=== PATIENT | female | born 1955 | race Caucasian/White ===

== ENCOUNTER → 2018-02-19 | Day surgery (SDC) | payer OTHER ==
[~2018-02-19] MED LIST: ASPIR 8181 MG PO; BUPIVACAINE 0.5%/EPI 30 ML SDV INJ ONE; CALCIUM ACETAT667 MG PO; CLINDAMYCIN 600MG / 50ML 50 ML IV ONE; FENTANYL CITRATE/PF 100MCG/2 ML INJ ONE; LIDOCAINE 2%/ EPINEPHRINE 20ML MDV ONE; LIDOCAINE HCL 2% LOCAL INJ 5 ML SDV VIAL INJ ONE; MIDAZOLAM HCL 2 MG/2 ML VIAL ONE; MULTI-VITAMIN1 EACH PO; MYRBETRIQ50 MG PO; NITROFURANTOIN100 MG PO; PIPER-TAZ 3.375 GM 50 ML ONE; PROPOFOL IV EMULSION 10 MG/ML 20 ML VIAL ONE; ROCURONIUM BROMIDE 10 MG/ML 5ML VIAL ONE; SEVOFLURANE INHAL SOLN 250 ML PEN BTL ONE; SINGULAIR10 MG PO; SODIUM CHLORIDE 0.9% 50ML 50 ML ONE; SUCCINYLCHOLINE 200 MG/10 ML SYR ONE
--- OUTSIDE RECORDS SUMMARY | 2018-02-19 09:00 | XMS REPORT | Clinical Summary ---
Author Author SHAKILA [facility]St[facility] Address Unknown Phone Unavailable Care Team Providers Care Packaging Associate Name Role Phone Pako Koo MD PCP Allergies Comments Active Allergy Reactions Severity Noted Date Patient states it makes her "spaced out" Phenylephrine-Guaifenesin 09/16/2013 Medications End Date Status Medication Sig Dispensed Refills Start Date Active raloxifene (EVISTA) 60 mg Take 60 mg by 0 tablet mouth daily. Active buPROPion (WELLBUTRIN XL) Take 150 mg 0 150 MG 24 hr tablet by mouth daily. Active mirabegron (MYRBETRIQ) 50 Take 50 mg by 0 mg Tb24 mouth daily. Active esomeprazole (NEXIUM) 40 Take 40 mg by 0 MG capsule mouth daily. Active calcium carbonate-vitamin Take 1 tablet 0 D2 500 mg(1,250mg) -200 by mouth 2 unit tablet (two) times daily. Active lactobacillus Take 1 packet 0 acidoph-L.bulgar by mouth 2 (LACTINEX,FLORANEX) 100 (two) times million cell oral daily. granules Active multivitamin capsule Take 1 0 capsule by mouth daily. 01/04/2018 azithromycin (ZITHROMAX Take 1 tablet 6 tablet 0 Z-PANCHITO) 250 MG tablet (250 mg 8 total) by mouth daily for 5 days Take two on first day.. 01/06/2018 benzonatate (TESSALON) Take 1 21 capsule 0 100 MG capsule capsule (100 8 mg total) by mouth every 8 (eight) hours for 7 days. Active Problems Problem Noted Date Appendicitis, unspecified appendicitis type 03/24/2015 Urge incontinence 09/16/2013 Overview: Refractory urge incontinence. Failed multiple meds. Urge incontinence almost completely controlled with Interstim percutaneous test. Right was better than left. 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 Encounters Care Team Description Date Type Specialty Arik Reza MD Productive cough (Primary Dx); Acute bronchitis, unspecified organism 12/30/2017 Emergency Emergency Medicine after 02/18/2017 Family History Medical History Relation Name Comments Cancer Father Cancer Mother Stroke Mother Relation Name Status Comments Father Mother Social History Date Tobacco Use Types Packs/Day Years Used Never Smoker Smokeless Tobacco: Never Used Alcohol Use Drinks/Week oz/Week Comments Yes 1 Cans of 0.6 Occassionally beer Sex Assigned at Date Recorded Not on file Industry Job Start Date Occupation Not on file Not on file Not on file Travel End Travel History Travel Start No recent travel history available. Last Filed Vital Signs Time Taken Vital Sign Reading 12/30/2017 11:50 AM CDT Blood Pressure 144/68 12/30/2017 11:50 AM CDT Pulse 80 12/30/2017 11:50 AM CDT Temperature 36.3 C (97.4 F) 12/30/2017 11:50 AM CDT Respiratory Rate 16 12/30/2017 11:50 AM CDT Oxygen Saturation 98% - Inhaled Oxygen - Concentration 12/30/2017 11:11 AM CDT Weight 56.2 kg (124 lb) 12/30/2017 11:11 AM CDT Height 157.5 cm (5' 2") 12/30/2017 11:11 AM CDT Body Mass Index 22.68 Plan of Treatment Not on file Implants Device Identifier Shelf Expiration Date Model / Serial / Lot Implanted Type Area Manufactur er 08/29/2014 3550-18 / / [id number] Kit,Accessory Lead Introducer - Urology Right: Back [employer] [id number] NEUROMODUL Implanted: Qty: 1 on 09/16/2013 by Jorge Garcia MD 3037 / [id number] / Stone Polisher,Patient Interstim Icon - Urology Right: Back [employer] [id number] NEUROMODUL Implanted: Qty: 1 on 09/16/2013 by Jorge Garcia MD 06/05/2017 [id number] / / [id number] Lead,Interstim Tined 28cm - Urology Right: Back [employer] [id number] NEUROMODUL Implanted: Qty: 1 on 09/16/2013 by Jorge Garcia MD 01/22/2015 3058 / [id number] / Neurostimulator,Interstim Ii - Urology Right: Back [employer] [id number] NEUROMODUL Implanted: Qty: 1 on 09/16/2013 by Jorge Garcia MD Results Not on fileafter 02/18/2017 Insurance Payer Benefit Subscriber ID Type Phone Address Plan / Group [facility] H[facility]/POS CARE POS SELECT CHOICE [facility] HMO/POS CARE POS SELECT CHOICE Advance Directives For more information, please contact: [facility] [address] [place] [address] Date Inactivated Comments Code Status Date Activated 03/25/2015 6:44 PM Full Code 03/24/2015 3:05 PM This code status was determined by: Patient
--- OUTSIDE RECORDS SUMMARY | 2018-02-19 09:00 | XMS REPORT | Continuity of Care Document ---
Author Author [facility] Interface Address Unknown Phone Unavailable Problems Problem Status Onset Date Classification Date Reported Comments Source [id number] Active 12/23/2014 [facility] 52557, REFLUX Active 11/12/2014 [facility] 04061,REFLUX Active 11/02/2014 [facility] 26042, VENTRAL HERNIA Active 04/12/2014 [facility] Acid reflux Active Problem 01/09/2015 [facility] Anxiety depression Active Problem 01/09/2015 [facility] Ventral hernia Active Problem 01/09/2015 [facility] N+V - Nausea and vomiting Active Problem 01/09/2015 [facility] VOMITING, UNSPECIFIED Active [facility] Medications Medication Details Route Status Patient Instructions Ordering Provider Order Date Source Lovenox 40 mg, 0.4 mL, Route: SUB-Q, Drug form: INJ, [id number], Start date: 01/05/15 11:00:00, Duration: 30 day, Stop date: 02/03/15 23:00:00Notes: (Same as: Lovenox) No Longer Active 01/05/2015 [facility] acetaminophen-hydrocodone 15 mL, Route: PO, Drug Form: SOLN, Q4H, PRN Other -See Comment, Start date: 01/05/15 9:54:00, Stop date: 02/04/15 9:53:00Notes: Do not exceed 4gm/day of acetaminophen. (Same as: [place] 325/7.5) Inactive 01/05/2015 [facility] Tylenol 650 mg, 20.3 mL, Route: PO, Drug form: LIQ, Q4H, PRN Pain Score 1-3, Start date: 01/05/15 9:53:00, Duration: 30 day, Stop date: 02/04/15 9:52:00Notes: ) No Longer Active 01/05/2015 [facility] Evista 60 mg, 1 tab, Route: PO, Drug form: TAB, Daily, Dosing Weight 83.21, kg, Start date: 01/05/15 9:00:00, Duration: 30 day, Stop date: 02/03/15 9:00:00 No Longer Active 01/05/2015 [facility] Wellbutrin XL 150 mg, 1 tab, Route: PO, Drug form: ERTAB, Daily, Dosing Weight 83.21, kg, Start date: 01/05/15 9:00:00, Duration: 30 day, Stop date: 02/03/15 9:00:00 No Longer Active 01/05/2015 [facility] tramadol hydrochloride 50 MG Oral Tablet 50 mg, PO, Q4H, PRN Pain Score 1-3, # 40 tab, 0 Refill(s) Active 01/05/2015 [facility] tramadol hydrochloride 50 MG Oral Tablet 50 mg, 1 tab, Route: PO, Drug form: TAB, Q4H, Dosing Weight 83.21, kg, PRN Pain Score 1-3, Start date: 01/05/15 6:50:00, Duration: 30 day, Stop date: 02/04/15 6:49:00 No Longer Active 01/05/2015 [facility] heparin 5,000 unit, 1 mL, Route: SUB-Q, Drug form: INJ, Q12H, Start date: 01/05/15 3:00:00, Duration: 30 day, Stop date: 02/03/15 15:00:00Notes: porcine heparin Inactive 01/05/2015 [facility] BD Normal Saline Flush 5 mL, Route: IV, Drug Form: INJ, PRN, PRN Line Flush, Start date: 01/04/15 21:41:00, Duration: 30 day, Stop date: 02/03/15 20:40:00Notes: (Same as: BD Posiflush) No Longer Active 01/05/2015 [facility] Sodium Chloride 0.9% IV 25 mL, Route: IV, Start date: 01/04/15 21:41:00, Duration: 30 day, Stop date: 02/03/15 20:40:00, PRN Line Flush No Longer Active 01/05/2015 [facility] ceFAZolin 2 gm, 100 mL, Route: IVPB, Drug form: INJ, ABXQ8H, Start date: 01/04/15 19:00:00, Duration: 4 doses or times, Stop date: 01/05/15 19:00:00Notes: Same as: Ancef No Longer Active 01/05/2015 [facility] Phenergan 25 mg, Route: IVPB, Q4H, Dosing Weight 83.21, kg, PRN as needed for nausea/vomiting, Start date: 01/04/15 18:50:00, Duration: 30 day, Stop date: 02/03/15 18:49:00 Inactive 01/04/2015 [facility] Pepcid 20 mg, 2 mL, Route: IVP, Drug form: INJ, Q24H, Start date: 01/04/15 18:00:00, Duration: 30 day, Stop date: 02/02/15 18:00:00Notes: (Same as: Pepcid) Can be dilute in 5-10cc NS IVP: Slow IV push over at least 2 minutes. No Longer Active 01/04/2015 [facility] ketOROLAC 30 mg/mL injectable solution 30 mg, 1 mL, Route: IV, Drug form: INJ, Q6H, Start date: 01/04/15 18:00:00, Duration: 5 doses or times, Stop date: 01/05/15 18:00:00Notes: (Same as:Toradol) IV bolus must be given >15 seconds. Give IM administration slowly and deeply into the muscle. Not for use > 4 days MEDICATION WASTE Product Size: 30 mg Product Wasted: ___ mg No Longer Active 01/04/2015 [facility] Reglan 10 mg, 2 mL, Route: IV, Drug form: INJ, Q8H, Start date: 01/04/15 18:00:00, Duration: 30 day, Stop date: 02/03/15 10:00:00Notes: (Same as: Reglan) No Longer Active 01/04/2015 [facility] Zofran 4 mg, 2 mL, Route: IVP, Drug form: INJ, Q8H, PRN Nausea & Vomiting, Start date: 01/04/15 17:49:00, Duration: 30 day, Stop date: 02/03/15 17:48:00Notes: (Same as: Zofran) MEDICATION WASTE Product Size: 4 mg Product Wasted: ___ mg No Longer Active 01/04/2015 [facility] Normodyne 10 mg, 2 mL, Route: IV, Drug form: INJ, Q6H, PRN Elevated BP, Start date: 01/04/15 17:39:00, Duration: 30 day, Stop date: 02/03/15 17:38:00Notes: (Same as: Normodyne, Trandate) Push over 2 minutes Give bolus over 2-3 minutes. No Longer Active 01/04/2015 [facility] Tylenol 650 mg, 1 supp, Route: TN, Drug form: SUPP, Q4H, PRN Other -See Comment, Start date: 01/04/15 17:37:00, Duration: 30 day, Stop date: 02/03/15 17:36:00Notes: Max orjjicwahoqqs=4291 mg/day (4 gm/day). (Same as: Tylenol) No Longer Active 01/04/2015 [facility] Dextrose 5% with 0.45% NaCl IV 1,000 mL 1,000 mL, Rate: 80 ml/hr, Infuse over: 12.5 hr, Route: IV, Dosing Weight 83.21 kg, Total Volume: 1,000, Start date: 01/04/15 17:37:00, Stop date: 02/03/15 17:36:00 No Longer Active 01/04/2015 [facility] Morphine 30 mg, 30 mL, Route: IV, CNC OPERATOR Dose: 1 mg, CNC OPERATOR Lockout: 10 minutes, Continuous Basal Rate: 0 mg, 4 Hour Limit (In MG): 24, Drug Form: INJ, Continuous, Start date: 01/04/15 17:00:00, Duration: 30 day, Stop date: 02/03/15 15:59:00Notes: Dose: Delay: Basal rate: 4hr limit: (Same as:Rapi-Ject) No Longer Active 01/04/2015 [facility] Naloxone 0.2 mg, 0.2 mL, Route: IVP, Drug form: INJ, Q5Min, Dosing Weight 83.21, kg, PRN Narcotic Reversal, Start date: 01/04/15 16:41:00, Stop date: 02/03/15 15:40:00Notes: (Same as: Narcan) MEDICATION WASTE Product Size: 2 mg Product Wasted: ___ mg No Longer Active 01/04/2015 [facility] Benadryl 12.5 mg, 0.25 mL, Route: IVP, Drug form: INJ, Q6H, PRN Itching, Start date: 01/04/15 16:30:00, Duration: 30 day, Stop date: 02/03/15 16:29:00Notes: (Same as: Benadryl) No Longer Active 01/04/2015 [facility] Promethazine 6.25 mg, Route: IVPB, ONCE, Dosing Weight 83.21, kg, PRN Nausea & Vomiting, Start date: 01/04/15 12:42:00 Inactive 01/04/2015 [facility] Ondansetron 4 mg, Route: IVP, ONCE, Dosing Weight 83.21, kg, PRN Nausea & Vomiting, Start date: 01/04/15 12:42:00 Inactive 01/04/2015 [facility] Flumazenil 0.2 mg, Route: IVP, PRN, Dosing Weight 83.21, kg, PRN Benzodiazepine Reversal, Initial dose, Start date: 01/04/15 12:42:00, Duration: 30 day, Stop date: 02/03/15 11:41:00 Inactive 01/04/2015 [facility] Meperidine 12.5 mg, Route: IVP, Q30Min, Dosing Weight 83.21, kg, PRN Other -See Comment, For shivering, Start date: 01/04/15 12:42:00, Duration: 2 doses or times, Stop date: Limited # of times Inactive 01/04/2015 [facility] Morphine 4 mg, Route: IVP, Q5Min, Dosing Weight 83.21, kg, PRN Pain Score 7-10, Start date: 01/04/15 12:42:00, Duration: 3 doses or times, Stop date: Limited # of times Inactive 01/04/2015 [facility] Naloxone 0.04 mg, Route: IVP, Q2MIN, Dosing Weight 83.21, kg, PRN Narcotic Reversal, Start date: 01/04/15 12:42:00, Duration: 8 doses or times, Stop date: Limited # of times Inactive 01/04/2015 [facility] Diphenhydramine 12.5 mg, Route: IVP, Drug form: INJ, Q6H, Dosing Weight 83.21, kg, PRN Itching, Start date: 01/04/15 12:42:00, Duration: 30 day, Stop date: 02/03/15 12:41:00 Inactive 01/04/2015 [facility] Hydromorphone 0.5 mg, Route: IVP, Q5Min, Dosing Weight 83.21, kg, PRN Pain Score 7-10, Start date: 01/04/15 12:42:00, Duration: 4 doses or times, Stop date: Limited # of times Inactive 01/04/2015 [facility] Calcium Chloride 0.0014 MEQ/ML / Potassium Chloride 0.004 MEQ/ML / Sodium Chloride 0.103 MEQ/ML / Sodium Lactate 0.028 MEQ/ML Injectable Solution 1,000 mL, Rate: 125 ml/hr, Infuse over: 8 hr, Route: IV, Dosing Weight 83.21 kg, Total Volume: 1,000, Start date: 01/04/15 12:42:00, Duration: 30 day, Stop date: 02/03/15 12:41:00 Inactive 01/04/2015 [facility] Labetalol 10 mg, Route: IVP, Q5Min, Dosing Weight 83.21, kg, PRN Elevated BP, Start date: 01/04/15 12:42:00, Duration: 5 doses or times, Stop date: Limited # of times Inactive 01/04/2015 [facility] chlorhexidine topical 0.12% liquid 15 mL, Route: S&SPIT, PRE OP, Drug form: LIQ, Start date: 01/04/15 6:00:00, Stop date: 01/04/15 23:00:00Notes: (Same As: Peridex) Inactive 01/04/2015 [facility] ceFAZolin 2 gm, 100 mL, Route: IVPB, Drug form: INJ, PRE OP, Start date: 01/04/15 6:00:00, Stop date: 01/04/15 21:00:00Notes: Same as: Ancef Inactive 01/04/2015 [facility] Unknown Home Medication I cool 1 tab, PO, Daily, Refill(s) 0 No Longer Active 01/03/2015 [facility] Calcium Chloride 0.0014 MEQ/ML / Potassium Chloride 0.004 MEQ/ML / Sodium Chloride 0.103 MEQ/ML / Sodium Lactate 0.028 MEQ/ML Injectable Solution 1,000 mL, Rate: 125 ml/hr, Infuse over: 8 hr, Route: IV, Dosing Weight 81.818 kg, Total Volume: 1,000, Start date: 05/04/14 8:06:00, Duration: 30 day, Stop date: 06/03/14 8:05:00 Inactive 05/04/2014 [facility] Acetaminophen 1,000 mg, 100 mL, Route: IVPB, Drug form: INJ, ONCE, Dosing Weight 81.818, kg, PRN Pain Score 1-3, Start date: 05/04/14 8:06:00, Duration: 1 doses or times, Stop date: Limited # of timesNotes: Infuse over 15 minutes Do not exceed 4gm/day of acetaminophen Inactive 05/04/2014 [facility] Ondansetron 4 mg, 2 mL, Route: IVP, Drug form: INJ, ONCE, Dosing Weight 81.818, kg, PRN Nausea & Vomiting, Start date: 05/04/14 8:06:00Notes: (Same as: Zofran) Inactive 05/04/2014 [facility] Naloxone 0.04 mg, 0.1 mL, Route: IVP, Drug form: INJ, Q2MIN, Dosing Weight 81.818, kg, PRN Narcotic Reversal, Start date: 05/04/14 8:06:00, Duration: 8 doses or times, Stop date: Limited # of timesNotes: Same as Narcan Inactive 05/04/2014 [facility] Flumazenil 0.2 mg, 2 mL, Route: IVP, Drug form: INJ, PRN, Dosing Weight 81.818, kg, PRN Benzodiazepine Reversal, Initial dose, Start date: 05/04/14 8:06:00, Duration: 30 day, Stop date: 06/03/14 9:05:00Notes: ( Same as: Romazicon) Inactive 05/04/2014 [facility] Hydromorphone 0.5 mg, 0.25 mL, Route: IVP, Drug form: INJ, Q5Min, Dosing Weight 81.818, kg, PRN Pain Score 7-10, Start date: 05/04/14 8:06:00, Duration: 4 doses or times, Stop date: Limited # of timesNotes: (Same as: Dilaudid) Inactive 05/04/2014 [facility] Morphine 2 mg, 0.2 mL, Route: IVP, Drug form: INJ, Q5Min, Dosing Weight 81.818, kg, PRN Pain Score 4-6, Start date: 05/04/14 8:06:00, Duration: 5 doses or times, Stop date: Limited # of timesNotes: (Same as:M ORPhine Sulfate) Inactive 05/04/2014 [facility] Exparel 20 mL, Route: InFILtration(local), Drug Form: INJ, Dosing Weight 81.818, kg, ONCALL, For Hemorrhoidectomy, STAT, Start date: 05/04/14 7:30:00, Duration: 30 day, Stop date: 06/03/14 8:29:00Notes: (Same as: Exparel) NOT FOR IV use Postoperative analgesia: Infiltration (local): Dose is based on surgical site and volume required to cover the area (in general, the maximum total dose is 266 mg). Bunionectomy: 7 mL into the tissues surrounding the osteotomy and 1 mL into the subcutaneous tissue of the surgical site (total dose=8 mL [106 mg]) Hemorrhoidectomy: 30 mL (20 mL vial diluted with 10 mL NS) divided and administered as 6 injections of 5 mL each (total dose=30 mL [266 mg]) No Longer Active 05/04/2014 [facility] Dexilant 0 Refill(s) Active 04/27/2014 [facility] Myrbetriq 0 Refill(s) Active 04/27/2014 [facility] Evista 0 Refill(s) Active 04/27/2014 [facility] Wellbutrin XL 0 Refill(s) Active 04/27/2014 [facility] Allergies, Adverse Reactions, Alerts Substance Category Reaction Severity Reaction type Status Date Reported Comments Source Entex Assertion Drug allergy Active [facility] Immunizations Immunization Date Given Site Status Last Updated Comments Source Hx pneumococcal vaccine 01/20/2014 completed [facility] Results Order Name Results Value Reference Range Date Interpretation Comments Source CHEM PANEL Albumin Lvl 2.5 g/dL 3.5 - 5.0 01/06/2015 [facility] CHEM PANEL CO2 26 meq/L 24 - 32 01/06/2015 [facility] CHEM PANEL Glucose Lvl 120 mg/dL 70 - 99 01/06/2015 [facility] CHEM PANEL Alk Phos 54 unit/L 39 - 136 01/06/2015 [facility] CHEM PANEL AST 15 unit/L 0 - 37 01/06/2015 [facility] CHEM PANEL Bili Total 0.4 mg/dL 0.2 - 1.3 01/06/2015 [facility] CHEM PANEL Total Protein 5.1 g/dL 6.4 - 8.4 01/06/2015 [facility] CHEM PANEL BUN 6 mg/dL 7 - 22 01/06/2015 [facility] CHEM PANEL ALT 14 unit/L 0 - 65 01/06/2015 [facility] CHEM PANEL eGFR 69 mL/min/1.73m2 01/06/2015 Result Comment: The eGFR is calculated using the CKD-EPI formula. In most young, healthy individuals the eGFR will be >90 mL/min/1.73m2. The eGFR declines with age. An eGFR of 60-89 may be normal in some populations, particularly the elderly, for whom the CKD-EPI formula has not been extensively validated. Use of the eGFR is not recommended in the following populations: Individuals with unstable creatinine concentrations, including patients and those with serious co-morbid conditions. Patients with extremes in muscle mass or diet. The data above are obtained from the National Kidney Disease Education Program (NKDEP) which additionally recommends that when the eGFR is used in patients with extremes of body mass index for purposes of drug dosing, the eGFR should be multiplied by the estimated BMI. [facility] CHEM PANEL Calcium Lvl 7.5 mg/dL 8.5 - 10.5 01/06/2015 [facility] CHEM PANEL Chloride Lvl 109 meq/L 95 - 109 01/06/2015 [facility] CHEM PANEL Potassium Lvl 3.4 meq/L 3.5 - 5.1 01/06/2015 [facility] CHEM PANEL Sodium Lvl 143 meq/L 135 - 145 01/06/2015 [facility] CHEM PANEL Creatinine Lvl 0.9 mg/dL 0.5 - 1.4 01/06/2015 [facility] CHEM PANEL AGAP 11.4 meq/L 10.0 - 20.0 01/06/2015 [facility] CHEM PANEL Globulin 2.6 g/dL 2.0 - 4.0 01/06/2015 [facility] CHEM PANEL B/C Ratio 7 6 - 25 01/06/2015 [facility] CHEM PANEL A/G Ratio 1.0 0.7 - 1.6 01/06/2015 [facility] HEMATOLOGY Eosinophils # 0.1 K/CMM 0.0 - 0.5 01/06/2015 [facility] HEMATOLOGY Basophils # 0.0 K/CMM 0.0 - 0.2 01/06/2015 [facility] HEMATOLOGY Macrocyte 1+ *ABN* (01/06/15 4:25 AM) None Seen 01/06/2015 [facility] HEMATOLOGY Segs-Bands # 3.6 K/CMM 1.5 - 8.1 01/06/2015 [facility] HEMATOLOGY Monocytes # 0.4 K/CMM 0.0 - 0.8 01/06/2015 [facility] HEMATOLOGY Lymphocytes # 0.8 K/CMM 1.0 - 5.5 01/06/2015 [facility] HEMATOLOGY Segs 73.7 % 45.0 - 75.0 01/06/2015 [facility] Lymphocytes 16.0 % 20.0 - 40.0 01/06/2015 [facility] HEMATOLOGY Eosinophils 2.1 % 0.0 - 4.0 01/06/2015 [facility] HEMATOLOGY Basophils 0.3 % 0.0 - 1.0 01/06/2015 [facility] HEMATOLOGY Monocytes 7.9 % 2.0 - 12.0 01/06/2015 [facility] HEMATOLOGY Hct 31.6 % 36.0 - 48.0 01/06/2015 [facility] MCV 98.5 fL 80.0 - 98.0 01/06/2015 [facility] MCH 32.3 pg 27.0 - 31.0 01/06/2015 [facility] HEMATOLOGY MCHC 32.8 g/dL 32.0 - 36.0 01/06/2015 [facility] HEMATOLOGY RDW 14.0 % 11.5 - 14.5 01/06/2015 [facility] HEMATOLOGY Platelet 115 K/CMM 133 - 450 01/06/2015 [facility] MPV 9.3 fL 7.4 - 10.4 01/06/2015 [facility] Hgb 10.4 g/dL 12.0 - 16.0 01/06/2015 [facility] HEMATOLOGY RBC 3.21 M/CMM 4.20 - 5.40 01/06/2015 [facility] HEMATOLOGY WBC 4.9 K/CMM 3.7 - 10.4 01/06/2015 [facility] CHEM PANEL BUN 10 mg/dL 7 - 22 01/05/2015 [facility] CHEM PANEL Albumin Lvl 2.8 g/dL 3.5 - 5.0 01/05/2015 [facility] CHEM PANEL CO2 29 meq/L 24 - 32 01/05/2015 [facility] CHEM PANEL Sodium Lvl 141 meq/L 135 - 145 01/05/2015 [facility] CHEM PANEL Creatinine Lvl 1.1 mg/dL 0.5 - 1.4 01/05/2015 [facility] CHEM PANEL Potassium Lvl 4.8 meq/L 3.5 - 5.1 01/05/2015 [facility] CHEM PANEL Calcium Lvl 7.7 mg/dL 8.5 - 10.5 01/05/2015 [facility] CHEM PANEL Chloride Lvl 106 meq/L 95 - 109 01/05/2015 [facility] CHEM PANEL eGFR 54 mL/min/1.73m2 01/05/2015 Result Comment: The eGFR is calculated using the CKD-EPI formula. In most young, healthy individuals the eGFR will be >90 mL/min/1.73m2. The eGFR declines with age. An eGFR of 60-89 may be normal in some populations, particularly the elderly, for whom the CKD-EPI formula has not been extensively validated. Use of the eGFR is not recommended in the following populations: Individuals with unstable creatinine concentrations, including patients and those with serious co-morbid conditions. Patients with extremes in muscle mass or diet. The data above are obtained from the National Kidney Disease Education Program (NKDEP) which additionally recommends that when the eGFR is used in patients with extremes of body mass index for purposes of drug dosing, the eGFR should be multiplied by the estimated BMI. [facility] CHEM PANEL AST 30 unit/L 0 - 37 01/05/2015 [facility] CHEM PANEL Total Protein 5.6 g/dL 6.4 - 8.4 01/05/2015 [facility] CHEM PANEL Alk Phos 63 unit/L 39 - 136 01/05/2015 [facility] CHEM PANEL ALT 23 unit/L 0 - 65 01/05/2015 [facility] CHEM PANEL Bili Total 0.6 mg/dL 0.2 - 1.3 01/05/2015 [facility] CHEM PANEL Glucose Lvl 163 mg/dL 70 - 99 01/05/2015 [facility] CHEM PANEL AGAP 10.8 meq/L 10.0 - 20.0 01/05/2015 [facility] CHEM PANEL B/C Ratio 9 6 - 25 01/05/2015 [facility] CHEM PANEL Globulin 2.8 g/dL 2.0 - 4.0 01/05/2015 [facility] CHEM PANEL A/G Ratio 1.0 0.7 - 1.6 01/05/2015 [facility] HEMATOLOGY Macrocyte 1+ *ABN* (01/05/15 4:50 AM) None Seen 01/05/2015 [facility] HEMATOLOGY Eosinophils # 0.0 K/CMM 0.0 - 0.5 01/05/2015 [facility] HEMATOLOGY Monocytes # 0.4 K/CMM 0.0 - 0.8 01/05/2015 [facility] HEMATOLOGY Lymphocytes 11.6 % 20.0 - 40.0 01/05/2015 [facility] HEMATOLOGY Monocytes 6.8 % 2.0 - 12.0 01/05/2015 [facility] HEMATOLOGY Lymphocytes # 0.7 K/CMM 1.0 - 5.5 01/05/2015 [facility] HEMATOLOGY Segs 81.3 % 45.0 - 75.0 01/05/2015 [facility] HEMATOLOGY Eosinophils 0.0 % 0.0 - 4.0 01/05/2015 [facility] HEMATOLOGY Segs-Bands # 5.0 K/CMM 1.5 - 8.1 01/05/2015 [facility] HEMATOLOGY Basophils 0.3 % 0.0 - 1.0 01/05/2015 [facility] HEMATOLOGY MCHC 33.7 g/dL 32.0 - 36.0 01/05/2015 [facility] HEMATOLOGY RDW 13.4 % 11.5 - 14.5 01/05/2015 [facility] HEMATOLOGY MCH 32.6 pg 27.0 - 31.0 01/05/2015 [facility] HEMATOLOGY Hct 35.6 % 36.0 - 48.0 01/05/2015 [facility] HEMATOLOGY MCV 96.7 fL 80.0 - 98.0 01/05/2015 [facility] HEMATOLOGY Platelet 160 K/CMM 133 - 450 01/05/2015 [facility] HEMATOLOGY MPV 8.2 fL 7.4 - 10.4 01/05/2015 [facility] HEMATOLOGY WBC 6.1 K/CMM 3.7 - 10.4 01/05/2015 [facility] HEMATOLOGY Hgb 12.0 g/dL 12.0 - 16.0 01/05/2015 [facility] HEMATOLOGY RBC 3.68 M/CMM 4.20 - 5.40 01/05/2015 [facility] Upper GI Series w water soluble DX Upper GI Series w water soluble DX OMNIPAQUE UPPER GI SERIES 01/05/2015 The fluoroscopy time is 2 seconds. Small volume of Omnipaque given orally passed easily from the distal esophagus into the proximal small bowel via the gastrojejunostomy. No contrast extravasation or obstruction is seen. Surgical drain and surgical myrna are seen in the upper abdomen. Right pelvic stimulator lead is identified. Impression: 1. No contrast extravasation or obstruction identified. 01/05/2015 - - Read by: Moody Tello MD Dictated Date/time: 01/05/15 08:26 Electronically Signed by: Moody Tello MD 01/05/15 08:27 FINAL REPORT [facility] BLOOD [facility] RESULTS Antibody Scrn Negative (12/28/14 2:24 PM) 12/28/2014 [facility] BLOOD BANK RESULTS ABO/Rh A POS 12/28/2014 [facility] CHEM PANEL Vitamin D, 25-OH, Total 38 ng/mL 30 - 100 12/28/2014 [facility] CHEM PANEL Glucose Lvl 98 mg/dL 70 - 99 12/28/2014 [facility] ELECTROLYTES Potassium Lvl 4.2 meq/L 3.5 - 5.1 12/28/2014 [facility] ELECTROLYTES Sodium Lvl 142 meq/L 135 - 145 12/28/2014 [facility] HEMATOLOGY Hgb 13.6 g/dL 12.0 - 16.0 12/28/2014 [facility] HEMATOLOGY Hct 41.8 % 36.0 - 48.0 12/28/2014 [facility] PARATHYROID PROFILE PTH Intact 28.4 pg/mL 11.1 - 79.5 12/28/2014 [facility] Chest 2 views DX Chest 2 views DX CLINICAL HISTORY: Coughing. : 1955. TECHNIQUE: PA and lateral views of the chest compared to April 27, 2014. Heart size is normal. No acute consolidation. No pleural effusion. Right diaphragm eventration noted. Right punctate cluster of supraclavicular calcifications may be vascular or kwasi. IMPRESSION: 1. No active disease in the chest. 12/28/2014 - - Read by: Deng Garcia MD Dictated Date/time: 12/28/14 14:54 Electronically Signed by: Deng Garcia MD 12/28/14 14:54 FINAL REPORT [employer] CHEM PANEL Globulin 3.6 g/dL 2.0 - 4.0 04/27/2014 [facility] [employer] CHEM PANEL A/G Ratio 1.1 0.7 - 1.6 04/27/2014 [facility] [employer] CHEM PANEL B/C Ratio 10 6 - 25 04/27/2014 [facility] [employer] CHEM PANEL AGAP 9.2 meq/L 10.0 - 20.0 04/27/2014 [facility] [employer] CHEM PANEL Glucose Lvl 93 mg/dL 70 - 99 04/27/2014 2Interpretive Data: Adult reference range values reflect the clinical guidelines of the [place] [employer]. [facility] [employer] CHEM PANEL AST 9 unit/L 0 - 37 04/27/2014 [facility] [employer] CHEM PANEL ALT 10 unit/L 0 - 65 04/27/2014 [facility] [facility] [employer] [facility] CHEM PANEL eGFR 61 mL/min/1.73m2 04/27/2014 1Result Comment: The eGFR is calculated using the CKD-EPI formula. In most young, healthy individuals the eGFR will be >90 mL/min/1.73m2. The eGFR declines with age. An eGFR of 60-89 may be normal in some populations, particularly the elderly, for whom the CKD-EPI formula has not been extensively validated. Use of the eGFR is not recommended in the following populations: Individuals with unstable creatinine concentrations, including patients and those with serious co-morbid conditions. Patients with extremes in muscle mass or diet. The data above are obtained from the National Kidney Disease Education Program (NKDEP) which additionally recommends that when the eGFR is used in patients with extremes of body mass index for purposes of drug dosing, the eGFR should be multiplied by the estimated BMI. [facility] [employer] CHEM PANEL Creatinine Lvl 1.0 mg/dL 0.5 - 1.4 04/27/2014 [employer] CHEM PANEL Calcium Lvl 9.1 mg/dL 8.5 - 10.5 04/27/2014 [facility] [employer] CHEM PANEL Total Protein 7.4 g/dL 6.4 - 8.4 04/27/2014 [facility] [employer] CHEM PANEL Bili Total 0.3 mg/dL 0.2 - 1.3 04/27/2014 [facility] CHEM PANEL Chloride Lvl 107 meq/L 95 - 109 04/27/2014 [facility] CHEM PANEL Potassium Lvl 4.2 meq/L 3.5 - 5.1 04/27/2014 [facility] CHEM PANEL Sodium Lvl 142 meq/L 135 - 145 04/27/2014 [facility] CHEM PANEL Alk Phos 78 unit/L 39 - 136 04/27/2014 [facility] CHEM PANEL BUN 10 mg/dL 7 - 22 04/27/2014 [facility] CHEM PANEL Albumin Lvl 3.8 g/dL 3.5 - 5.0 04/27/2014 [facility] CHEM PANEL CO2 30 meq/L 24 - 32 04/27/2014 [facility] HEMATOLOGY Platelet 191 K/CMM 133 - 450 04/27/2014 [facility] HEMATOLOGY MPV 9.2 fL 7.4 - 10.4 04/27/2014 [facility] HEMATOLOGY RDW 14.0 % 11.5 - 14.5 04/27/2014 [facility] HEMATOLOGY RBC 4.36 M/CMM 4.20 - 5.40 04/27/2014 [facility] HEMATOLOGY WBC 5.2 K/CMM 3.7 - 10.4 04/27/2014 [facility] MCH 31.9 pg 27.0 - 31.0 04/27/2014 [facility] HEMATOLOGY MCHC 33.7 g/dL 32.0 - 36.0 04/27/2014 [facility] HEMATOLOGY Hct 41.3 % 36.0 - 48.0 04/27/2014 [facility] HEMATOLOGY MCV 94.6 fL 80.0 - 98.0 04/27/2014 [facility] HEMATOLOGY Hgb 13.9 g/dL 12.0 - 16.0 04/27/2014 [facility] HEMATOLOGY Eosinophils 2.2 % 0.0 - 4.0 04/27/2014 [facility] HEMATOLOGY Monocytes 7.7 % 2.0 - 12.0 04/27/2014 [facility] HEMATOLOGY Lymphocytes 31.9 % 20.0 - 40.0 04/27/2014 [facility] HEMATOLOGY Macrocyte 1+ *ABN* (04/27/14 1:43 PM) None Seen 04/27/2014 [facility] HEMATOLOGY Basophils # 0.0 K/CMM 0.0 - 0.2 04/27/2014 [facility] HEMATOLOGY Segs-Bands # 3.0 K/CMM 1.5 - 8.1 04/27/2014 [facility] HEMATOLOGY Basophils 0.8 % 0.0 - 1.0 04/27/2014 [facility] HEMATOLOGY Eosinophils # 0.1 K/CMM 0.0 - 0.5 04/27/2014 [facility] HEMATOLOGY Lymphocytes # 1.7 K/CMM 1.0 - 5.5 04/27/2014 [facility] HEMATOLOGY Monocytes # 0.4 K/CMM 0.0 - 0.8 04/27/2014 [facility] HEMATOLOGY Segs 57.4 % 45.0 - 75.0 04/27/2014 [facility] Chest 2 views DX Chest 2 views DX Chest x-ray 2 views INDICATION: Coughing COMPARISON: None FINDINGS: Heart size and central vasculature are within normal limits. There is no effusion or focal pneumonia. No pneumothorax. Minimal left basilar atelectasis. Punctate calcific granuloma is seen in the right midlung zone. No acute osseous pathology. IMPRESSION: No acute cardiopulmonary process. 04/27/2014 - - Read by: Cesia Vaughan MD Dictated Date/time: 04/27/14 14:03 Electronically Signed by: Cesia Vaughan MD 04/27/14 14:04 FINAL REPORT [facility] Vital Signs Vital Sign Value Date Comments Source Systolic (mm Hg) 112 01/06/2015 [facility] Diastolic (mm Hg) 68 01/06/2015 [facility] Respitory Rate 18 01/06/2015 [facility] Temperature Oral (F) 98.2 F 01/06/2015 [facility] Heart Rate 90 01/06/2015 [facility] Respitory Rate 18 01/06/2015 [facility] Systolic (mm Hg) 102 01/06/2015 [facility] Diastolic (mm Hg) 66 01/06/2015 [facility] Heart Rate 90 01/06/2015 [facility] Temperature Oral (F) 97.8 F 01/06/2015 [facility] Heart Rate 87 01/06/2015 [facility] Respitory Rate 19 01/06/2015 [facility] Systolic (mm Hg) 109 01/06/2015 [facility] Diastolic (mm Hg) 64 01/06/2015 [facility] Temperature Oral (F) 98.9 F 01/06/2015 [facility] Weight 83.21 12/28/2014 [facility] Height 157.48 cm 12/28/2014 [facility] BMI Calculated 33.55 12/28/2014 [facility] Systolic (mm Hg) 137 05/04/2014 [facility] Diastolic (mm Hg) 54 05/04/2014 [facility] Respitory Rate 16 05/04/2014 [facility] Respitory Rate 16 05/04/2014 [facility] Systolic (mm Hg) 123 05/04/2014 [facility] Diastolic (mm Hg) 56 05/04/2014 [facility] Respitory Rate 16 05/04/2014 [facility] Systolic (mm Hg) 123 05/04/2014 [facility] Diastolic (mm Hg) 56 05/04/2014 [facility] Height 157.48 cm 04/27/2014 [facility] BMI Calculated 32.99 04/27/2014 [facility] Weight 81.818 04/27/2014 [facility] Encounters Location Location Details Encounter Type Encounter Number Reason For Visit Attending Provider ADM Date DC Date Status Source [facility] OBS Day Surgery [id number] Chao Durand 05/04/2014 05/04/2014 [facility] Inpatient [id number] Chao Durand 01/04/2015 01/06/2015 [facility] Procedures Procedure Code Date Perfomer Comments Source Gastric bypass operation 30806015 01/04/2015 [facility] Removal of gastric band [id number] 01/04/2015 [facility] Cholecystectomy [id number] [facility] Hysterectomy [id number] [facility] Laparoscopic adjustable gastric banding [id number] [facility] Miscellaneous operations<sup>1</sup> [id number] interstim implant [facility]
--- OUTSIDE RECORDS SUMMARY | 2018-02-19 09:01 | XMS REPORT | Summary of Care ---
Author Organization Unknown Address Unknown Phone Unavailable Encounter [facility](KAEL) [id number] Date(s): 05/04/14 - 05/04/14 [facility] [address] [place] [address]- Discharge Disposition: Home Physician Attending: Chao Durand MD Physician_Referring: Chao Durand MD Vital Signs 1 2 3 Most recent to oldest [Reference Range]: 157.48 cm (04/27/14 12:49 PM) Height 137/54 mmHg (05/04/14 2:15 PM) 123/56 mmHg (05/04/14 2:00 PM) 123/56 mmHg (05/04/14 1:45 PM) Blood Pressure [90-140/60-90 mmHg] 16 BRMIN (05/04/14 2:15 PM) 16 BRMIN (05/04/14 2:00 PM) 16 BRMIN (05/04/14 1:45 PM) Respiratory Rate [14-20 BRMIN] 81.818 kg (04/27/14 12:49 PM) Weight 32.99 m2 (04/27/14 12:49 PM) Body Mass Index Problem List Condition Effective Dates Status Health Status Informant Acid Active reflux(Confirmed) Anxiety Active depression(Confirmed ) Ventral Active hernia(Confirmed) Allergies, Adverse Reactions, Alerts Substance Reaction Severity Status Entex Active Medications acetaminophen 1,000 mg, 100 mL, Route: IVPB, Drug form: INJ, ONCE, Dosing Weight 81.818, kg, P RN Pain Score 1-3, Start date: 05/04/14 8:06:00, Duration: 1 doses or times, Sto p date: Limited # of times Notes: Infuse over 15 minutes Do not exceed 4gm/day of acetaminophen Start Date: 05/04/14 Stop Date: 05/04/14 Status: Discontinued Dexilant 0 Refill(s) Start Date: 04/27/14 Status: Ordered Evista 0 Refill(s) Start Date: 04/27/14 Status: Ordered Exparel 20 mL, Route: InFILtration(local), Drug Form: INJ, Dosing Weight 81.818, kg, ONC ALL, For Hemorrhoidectomy, STAT, Start date: 05/04/14 7:30:00, Duration: 30 day, Stop date: 06/03/14 8:29:00 Notes: (Same as: Exparel) NOT FOR IV use Postoperative analgesia: Infi ltration (local): Dose is based on surgical site and volume required to cover th e area (in general, the maximum total dose is 266 mg).Bunionectomy: 7 mL into th e tissues surrounding the osteotomy and 1 mL into the subcutaneous tissue of the surgical site (total dose=8 mL [106 mg])Hemorrhoidectomy: 30 mL (20 mL vial dil uted with 10 mL NS) divided and administered as 6 injections of 5 mL each (total dose=30 mL [266 mg]) Start Date: 05/04/14 Stop Date: 05/05/14 Status: Discontinued flumazenil 0.2 mg, 2 mL, Route: IVP, Drug form: INJ, PRN, Dosing Weight 81.818, kg, PRN Joe zodiazepine Reversal, Initial dose, Start date: 05/04/14 8:06:00, Duration: 30 d ay, Stop date: 06/03/14 9:05:00 Notes: (Same as: Romazicon) Start Date: 05/04/14 Stop Date: 05/04/14 Status: Discontinued hydromorphone 0.5 mg, 0.25 mL, Route: IVP, Drug form: INJ, Q5Min, Dosing Weight 81.818, kg, [place] N Pain Score 7-10, Start date: 05/04/14 8:06:00, Duration: 4 doses or times, Sto p date: Limited # of times Notes: (Same as: Dilaudid) Start Date: 05/04/14 Stop Date: 05/04/14 Status: Discontinued Lactated Ringers Injection IV 1,000 mL 1,000 mL, Rate: 125 ml/hr, Infuse over: 8 hr, Route: IV, Dosing Weight 81.818 kg , Total Volume: 1,000, Start date: 05/04/14 8:06:00, Duration: 30 day, Stop date : 06/03/14 8:05:00 Start Date: 05/04/14 Stop Date: 05/04/14 Status: Discontinued morphine Sulfate 2 mg, 0.2 mL, Route: IVP, Drug form: INJ, Q5Min, Dosing Weight 81.818, kg, PRN P ain Score 4-6, Start date: 05/04/14 8:06:00, Duration: 5 doses or times, Stop da te: Limited # of times Notes: (Same as:MORPhine Sulfate) Start Date: 05/04/14 Stop Date: 05/04/14 Status: Discontinued Myrbetriq 0 Refill(s) Start Date: 04/27/14 Status: Ordered naloxone 0.04 mg, 0.1 mL, Route: IVP, Drug form: INJ, Q2MIN, Dosing Weight 81.818, kg, [place] N Narcotic Reversal, Start date: 05/04/14 8:06:00, Duration: 8 doses or times, S top date: Limited # of times Notes: Same as Narcan Start Date: 05/04/14 Stop Date: 05/04/14 Status: Discontinued ondansetron 4 mg, 2 mL, Route: IVP, Drug form: INJ, ONCE, Dosing Weight 81.818, kg, PRN Naus ea & Vomiting, Start date: 05/04/14 8:06:00 Notes: (Same as: Zofran) Start Date: 05/04/14 Stop Date: 05/04/14 Status: Discontinued Wellbutrin XL 0 Refill(s) Start Date: 04/27/14 Status: Ordered Results ELECTROLYTES Most recent to 1 oldest [Reference Range]: Sodium Lvl [135-145 142 mEq/L mEq/L] (04/27/14 1:43 PM) Potassium Lvl 4.2 mEq/L [3.5-5.1 mEq/L] (04/27/14 1:43 PM) Chloride Lvl [95-109 107 mEq/L mEq/L] (04/27/14 1:43 PM) CO2 [24-32 mEq/L] 30 mEq/L (04/27/14 1:43 PM) AGAP [10.0-20.0 9.2 mEq/L mEq/L] *LOW* (04/27/14 1:43 PM) CHEM PANEL Most recent to 1 oldest [Reference Range]: Creatinine Lvl 1.0 mg/dL [0.5-1.4 mg/dL] (04/27/14 1:43 PM) eGFR 61 mL/min/1.73m2 1 *NA* (04/27/14 1:43 PM) BUN [7-22 mg/dL] 10 mg/dL (04/27/14 1:43 PM) B/C Ratio [6-25] 10 (04/27/14 1:43 PM) Glucose Lvl [70-99 93 mg/dL 2 mg/dL] (04/27/14 1:43 PM) Total Protein 7.4 g/dL [6.4-8.4 g/dL] (04/27/14 1:43 PM) Albumin Lvl [3.5-5.0 3.8 g/dL g/dL] (04/27/14 1:43 PM) Globulin [2.0-4.0 3.6 g/dL g/dL] (04/27/14 1:43 PM) A/G Ratio [0.7-1.6] 1.1 (04/27/14 1:43 PM) Calcium Lvl 9.1 mg/dL [8.5-10.5 mg/dL] (04/27/14 1:43 PM) ALT [0-65 unit/L] 10 unit/L (04/27/14 1:43 PM) AST [0-37 unit/L] 9 unit/L (04/27/14 1:43 PM) Alk Phos [39-136 78 unit/L unit/L] (04/27/14 1:43 PM) Bili Total [0.2-1.3 0.3 mg/dL mg/dL] (04/27/14 1:43 PM) 1Result Comment: The eGFR is calculated using [...] from the National Kidney Disease Education Program ( NKDEP) which additionally recommends that when the eGFR is used in patients with extremes of body mass index for purposes of drug dosing, the eGFR should be mul tiplied by the estimated BMI. 2Interpretive Data: Adult reference range values reflect the clinical guidelines of the [place] [employer]. HEMATOLOGY Most recent to 1 oldest [Reference Range]: WBC [3.7-10.4 K/CMM] 5.2 K/CMM (04/27/14 1:43 PM) RBC [4.20-5.40 4.36 M/CMM M/CMM] (04/27/14 1:43 PM) Hgb [12.0-16.0 g/dL] 13.9 g/dL (04/27/14 1:43 PM) Hct [36.0-48.0 %] 41.3 % (04/27/14 1:43 PM) MCV [80.0-98.0 fL] 94.6 fL (04/27/14 1:43 PM) MCH [27.0-31.0 pg] 31.9 pg *HI* (04/27/14 1:43 PM) MCHC [32.0-36.0 33.7 g/dL g/dL] (04/27/14 1:43 PM) RDW [11.5-14.5 %] 14.0 % (04/27/14 1:43 PM) Platelet [133-450 191 K/CMM K/CMM] (04/27/14 1:43 PM) MPV [7.4-10.4 fL] 9.2 fL (04/27/14 1:43 PM) Segs [45.0-75.0 %] 57.4 % (04/27/14 1:43 PM) Lymphocytes 31.9 % [20.0-40.0 %] (04/27/14 1:43 PM) Monocytes [2.0-12.0 7.7 % %] (04/27/14 1:43 PM) Eosinophils [0.0-4.0 2.2 % %] (04/27/14 1:43 PM) Basophils [0.0-1.0 0.8 % %] (04/27/14 1:43 PM) Segs-Bands # 3.0 K/CMM [1.5-8.1 K/CMM] (04/27/14 1:43 PM) Lymphocytes # 1.7 K/CMM [1.0-5.5 K/CMM] (04/27/14 1:43 PM) Monocytes # [0.0-0.8 0.4 K/CMM K/CMM] (04/27/14 1:43 PM) Eosinophils # 0.1 K/CMM [0.0-0.5 K/CMM] (04/27/14 1:43 PM) Basophils # [0.0-0.2 0.0 K/CMM K/CMM] (04/27/14 1:43 PM) Macrocyte [None 1+ Seen] *ABN* (04/27/14 1:43 PM) Immunizations No data available for this section Procedures Procedure Date Related Diagnosis Body Site Cholecystectomy Hysterectomy Laparoscopic adjustable gastric banding Miscellaneous operations1 1interstim implant Social History Social History Type Response Smoking Status Never smoker; Exposure to Tobacco Smoke None; Cigarette Smoking Last 365 Days No; Reg Smoking Cessation Counseling No Assessment and Plan No data available for this section
--- OUTSIDE RECORDS SUMMARY | 2018-02-19 09:01 | XMS REPORT ---
Author Author [facility] Address Unknown Phone Unavailable Care Team Providers Care Soccer Player Name Role Phone Unavailable Unavailable Problems This patient has no known problems. Allergies, Adverse Reactions, Alerts This patient has no known allergies or adverse reactions. Medications This patient has no known medications. Results Test Description Test Time Test Comments Text Results Atomic Results Result Comments RAD, BONE DENSITY STUDY 2017-01-09 11:12:00 Reason for Exam:->OSTOEPOROSIS FINAL REPORT Technique: Bone mineral density of the lumbar spine and both femoral necks performed on 01/09/2017 Clinical History: Osteoporosis Comparison: None Bone mineral density measurementLumbar spine1.210 gm/so1Ssya Femoral neck0.767 gm/cc7Utokf Femoral neck0.794 gm/cm2 Standard deviation from young adult population (T-score)Lumbar spine 0.3Left Femoral neck-2.0Right Femoral neck-1.8 Standard deviation for age adjusted population (Z-score)Lumbar spine 2.0Left Femoral neck-0.4 Right Femoral neck-0.2 IMPRESSION: 1. WHO classification of osteopenia for both femoral necks. 2. WHO classification of normal for the lumbar spine. Diagnostic criteria for osteoporosisBMD: Bone mineral density Normal: BMD measurement less than one standard deviation from young adult populationOsteopenia: BMD measurement between 1 and 2.5 standard deviationsOsteoporosis: BMD measurement greater than 2.5 standard deviations Signed: Dee Guerraeport Verified Date/Time: 01/09/2017 11:12:59 Reading Location: [facility] Radiology Reading Room
--- OUTSIDE RECORDS SUMMARY | 2018-02-19 09:01 | XMS REPORT | Summary of Care ---
Author Author [facility] Organization [facility] Address Unknown Phone Unavailable Encounter AYANA Anna(KAEL) [id number] Date(s): 01/04/15 - 01/06/15 [id number] [place] [address]- Discharge Disposition: Home Attending Physician: Chao Durand MD Admitting Physician: Chao Durand MD Referring Physician: Chao Durand MD Vital Signs 1 2 3 Most recent to oldest [Reference Range]: 157.48 cm (12/28/14 1:46 PM) Height 98.2 DegF (01/06/15 11:34 AM) 97.8 DegF (01/06/15 7:33 AM) 98.9 DegF (01/06/15 4:00 AM) Temperature Oral [96.4-99.1 DegF] 112/68 mmHg (01/06/15 11:34 AM) 102/66 mmHg (01/06/15 7:33 AM) 109/64 mmHg (01/06/15 4:00 AM) Blood Pressure [90-140/60-90 mmHg] 18 BRMIN (01/06/15 11:34 AM) 18 BRMIN (01/06/15 7:33 AM) 19 BRMIN (01/06/15 4:00 AM) Respiratory Rate [14-20 BRMIN] 90 bpm (01/06/15 11:34 AM) 90 bpm (01/06/15 7:33 AM) 87 bpm (01/06/15 4:00 AM) Peripheral Pulse Rate [60-100 bpm] 83.21 kg (12/28/14 1:46 PM) Weight 33.55 m2 (12/28/14 1:46 PM) Body Mass Index Problem List Condition Effective Dates Status Health Status Informant Acid Active reflux(Confirmed) Anxiety Active depression(Confirmed ) N+V - Nausea and Active vomiting(Confirmed) Ventral Active hernia(Confirmed) Allergies, Adverse Reactions, Alerts Substance Reaction Severity Status Entex Active Medications acetaminophen-hydrocodone 15 mL, Route: PO, Drug Form: SOLN, Q4H, PRN Other -See Comment, Start date: 12/10 10/23 9:54:00, Stop date: 02/04/15 9:53:00 Notes: Do not exceed 4gm/day of acetaminophen. (Same as: [place] 325/7.5) Start Date: 01/05/15 Stop Date: 01/05/15 Status: Discontinued BD Normal Saline Flush 5 mL, Route: IV, Drug Form: INJ, PRN, PRN Line Flush, Start date: 01/04/15 21:41 :00, Duration: 30 day, Stop date: 02/03/15 20:40:00 Notes: (Same as: BD Posiflush) Start Date: 01/04/15 Stop Date: 01/06/15 Status: Discontinued BD Normal Saline Flush 10 mL, Route: IV, Drug Form: INJ, PRN, PRN Line Flush, Start date: 01/04/15 21:4 1:00, Duration: 30 day, Stop date: 02/03/15 20:40:00 Notes: (Same as: BD Posiflush) Start Date: 01/04/15 Stop Date: 01/06/15 Status: Discontinued Benadryl 12.5 mg, 0.25 mL, Route: IVP, Drug form: INJ, Q6H, PRN Itching, Start date: 12/10 09/22 16:30:00, Duration: 30 day, Stop date: 02/03/15 16:29:00 Notes: (Same as: Benadryl) Start Date: 01/04/15 Stop Date: 01/06/15 Status: Discontinued ceFAZolin 2 gm, 100 mL, Route: IVPB, Drug form: INJ, [id number], Start date: 01/04/15 19:00:00 , Duration: 4 doses or times, Stop date: 01/05/15 19:00:00 Notes: Same as: Ancef Start Date: 01/04/15 Stop Date: 01/05/15 Status: Completed ceFAZolin 2 gm, 100 mL, Route: IVPB, Drug form: INJ, PRE OP, Start date: 01/04/15 6:00:00, Stop date: 01/04/15 21:00:00 Notes: Same as: Ancef Start Date: 01/04/15 Stop Date: 01/04/15 Status: Completed chlorhexidine topical 0.12% liquid 15 mL, Route: S&SPIT, PRE OP, Drug form: LIQ, Start date: 01/04/15 6:00:00, Stop date: 01/04/15 23:00:00 Notes: (Same As: Peridex) Start Date: 01/04/15 Stop Date: 01/04/15 Status: Completed Dextrose 5% with 0.45% NaCl IV 1,000 mL 1,000 mL, Rate: 80 ml/hr, Infuse over: 12.5 hr, Route: IV, Dosing Weight 83.21 k g, Total Volume: 1,000, Start date: 01/04/15 17:37:00, Stop date: 02/03/15 17:36 :00 Start Date: 01/04/15 Stop Date: 01/06/15 Status: Discontinued diphenhydrAMINE 12.5 mg, Route: IVP, Drug form: INJ, Q6H, Dosing Weight 83.21, kg, PRN Itching, Start date: 01/04/15 12:42:00, Duration: 30 day, Stop date: 02/03/15 12:41:00 Start Date: 01/04/15 Stop Date: 01/04/15 Status: Discontinued Evista 60 mg, 1 tab, Route: PO, Drug form: TAB, Daily, Dosing Weight 83.21, kg, Start d ate: 01/05/15 9:00:00, Duration: 30 day, Stop date: 02/03/15 9:00:00 Start Date: 01/05/15 Stop Date: 01/06/15 Status: Discontinued flumazenil 0.2 mg, Route: IVP, PRN, Dosing Weight 83.21, kg, PRN Benzodiazepine Reversal, I nitial dose, Start date: 01/04/15 12:42:00, Duration: 30 day, Stop date: 5 11:41:00 Start Date: 01/04/15 Stop Date: 01/04/15 Status: Discontinued heparin 5,000 unit, 1 mL, Route: SUB-Q, Drug form: INJ, Q12H, Start date: 01/05/15 3:00: 00, Duration: 30 day, Stop date: 02/03/15 15:00:00 Notes: porcine heparin Start Date: 01/05/15 Stop Date: 01/05/15 Status: Discontinued hydromorphone 0.5 mg, Route: IVP, Q5Min, Dosing Weight 83.21, kg, PRN Pain Score 7-10, Start d ate: 01/04/15 12:42:00, Duration: 4 doses or times, Stop date: Limited # of time s Start Date: 01/04/15 Stop Date: 01/04/15 Status: Discontinued ketOROLAC 30 mg/mL injectable solution 30 mg, 1 mL, Route: IV, Drug form: INJ, Q6H, Start date: 01/04/15 18:00:00, Dura tion: 5 doses or times, Stop date: 01/05/15 18:00:00 Notes: (Same as:Toradol) IV bolus must be given >15 seconds. Give IM administration slowly and deeply into the muscle.Not for use > 4 days MEDICATION WASTE Product Size: 30 mgProduct Wasted: ___ mg Start Date: 01/04/15 Stop Date: 01/05/15 Status: Completed ketOROLAC 30 mg/mL injectable solution 30 mg, 1 mL, Route: IV, Drug form: INJ, Q6H, Start date: 01/04/15 18:00:00, Dura tion: 5 doses or times, Stop date: 01/05/15 18:00:00 Notes: (Same as:Toradol) IV bolus must be given >15 seconds. Give IM administration slowly and deeply into the muscle.Not for use > 4 days MEDICATION WASTE Product Size: 30 mgProduct Wasted: ___ mg Start Date: 01/04/15 Stop Date: 01/04/15 Status: Discontinued labetalol 10 mg, Route: IVP, Q5Min, Dosing Weight 83.21, kg, PRN Elevated BP, Start date: 01/04/15 12:42:00, Duration: 5 doses or times, Stop date: Limited # of times Start Date: 01/04/15 Stop Date: 01/04/15 Status: Discontinued Lactated Ringers Injection IV 1000 mL 1,000 mL, Rate: 125 ml/hr, Infuse over: 8 hr, Route: IV, Dosing Weight 83.21 kg, Total Volume: 1,000, Start date: 01/04/15 12:42:00, Duration: 30 day, Stop date: 02/03/15 12:41:00 Start Date: 01/04/15 Stop Date: 01/04/15 Status: Discontinued Lovenox 40 mg, 0.4 mL, Route: SUB-Q, Drug form: INJ, [id number], Start date: 01/05/15 11:0 0:00, Duration: 30 day, Stop date: 02/03/15 23:00:00 Notes: (Same as: Lovenox) Start Date: 01/05/15 Stop Date: 01/06/15 Status: Discontinued meperidine 12.5 mg, Route: IVP, Q30Min, Dosing Weight 83.21, kg, PRN Other -See Comment, Fo r shivering, Start date: 01/04/15 12:42:00, Duration: 2 doses or times, Stop olga lidia e: Limited # of times Start Date: 01/04/15 Stop Date: 01/04/15 Status: Discontinued morphine 1 mg/ml BANJO REPAIRER (30 mg/30 mL) INJ Syringe 30 mg 30 mg, 30 mL, Route: IV, BANJO REPAIRER Dose: 1 mg, BANJO REPAIRER Lockout: 10 minutes, Continuous Ba ainsley Rate: 0 mg, 4 Hour Limit (In MG): 24, Drug Form: INJ, Continuous, Start date : 01/04/15 17:00:00, Duration: 30 day, Stop date: 02/03/15 15:59:00 Notes: Dose: Delay: Basal rate: 4hr limit:( Same as:Rapi-Ject) Start Date: 01/04/15 Stop Date: 01/06/15 Status: Discontinued morphine Sulfate 4 mg, Route: IVP, Q5Min, Dosing Weight 83.21, kg, PRN Pain Score 7-10, Start olga lidia e: 01/04/15 12:42:00, Duration: 3 doses or times, Stop date: Limited # of times Start Date: 01/04/15 Stop Date: 01/04/15 Status: Discontinued morphine Sulfate 2 mg, Route: IVP, Q5Min, Dosing Weight 83.21, kg, PRN Pain Score 4-6, Start date : 01/04/15 12:42:00, Duration: 5 doses or times, Stop date: Limited # of times Start Date: 01/04/15 Stop Date: 01/04/15 Status: Discontinued naloxone 0.2 mg, 0.2 mL, Route: IVP, Drug form: INJ, Q5Min, Dosing Weight 83.21, kg, PRN Narcotic Reversal, Start date: 01/04/15 16:41:00, Stop date: 02/03/15 15:40:00 Notes: (Same as: Narcan) MEDICATION WASTE Product Size: 2 mgProduct Was eliz: ___ mg Start Date: 01/04/15 Stop Date: 01/06/15 Status: Discontinued naloxone 0.04 mg, Route: IVP, Q2MIN, Dosing Weight 83.21, kg, PRN Narcotic Reversal, Star t date: 01/04/15 12:42:00, Duration: 8 doses or times, Stop date: Limited # of t imes Start Date: 01/04/15 Stop Date: 01/04/15 Status: Discontinued Normodyne 10 mg, 2 mL, Route: IV, Drug form: INJ, Q6H, PRN Elevated BP, Start date: 17:39:00, Duration: 30 day, Stop date: 02/03/15 17:38:00 Notes: (Same as: Normodyne, Trandate)Push over 2 minutes Give bolus over 2-3 mi nutes. Start Date: 01/04/15 Stop Date: 01/06/15 Status: Discontinued ondansetron 4 mg, Route: IVP, ONCE, Dosing Weight 83.21, kg, PRN Nausea & Vomiting, Start date: 01/04/15 12:42:00 Start Date: 01/04/15 Stop Date: 01/04/15 Status: Discontinued Pepcid 20 mg, 2 mL, Route: IVP, Drug form: INJ, Q24H, Start date: 01/04/15 18:00:00, Du ration: 30 day, Stop date: 02/02/15 18:00:00 Notes: (Same as: Pepcid)Can be dilute in 5-10cc NS IVP: Slow IV push over at le ast 2 minutes. Start Date: 01/04/15 Stop Date: 01/06/15 Status: Discontinued Phenergan 25 mg, Route: IVPB, Q4H, Dosing Weight 83.21, kg, PRN as needed for nausea/vomit ing, Start date: 01/04/15 18:50:00, Duration: 30 day, Stop date: 02/03/15 18:49: 00 Start Date: 01/04/15 Stop Date: 01/04/15 Status: Discontinued promethazine 6.25 mg, Route: IVPB, ONCE, Dosing Weight 83.21, kg, PRN Nausea & Vomiting, Start date: 01/04/15 12:42:00 Start Date: 01/04/15 Stop Date: 01/04/15 Status: Discontinued Reglan 10 mg, 2 mL, Route: IV, Drug form: INJ, Q8H, Start date: 01/04/15 18:00:00, Dura tion: 30 day, Stop date: 02/03/15 10:00:00 Notes: (Same as: Reglan) Start Date: 01/04/15 Stop Date: 01/06/15 Status: Discontinued Sodium Chloride 0.9% IV 25 mL, Route: IV, Start date: 01/04/15 21:41:00, Duration: 30 day, Stop date: 20:40:00, PRN Line Flush Start Date: 01/04/15 Stop Date: 01/06/15 Status: Discontinued tramadol 50 mg oral tablet 50 mg, 1 tab, Route: PO, Drug form: TAB, Q4H, Dosing Weight 83.21, kg, PRN Pain Score 1-3, Start date: 01/05/15 6:50:00, Duration: 30 day, Stop date: 02/04/15 6 :49:00 Start Date: 01/05/15 Stop Date: 01/06/15 Status: Discontinued tramadol 50 mg oral tablet 50 mg, PO, Q4H, PRN Pain Score 1-3, # 40 tab, 0 Refill(s) Start Date: 01/05/15 Stop Date: 01/12/15 Status: Ordered Tylenol 650 mg, 1 supp, Route: WA, Drug form: SUPP, Q4H, PRN Other -See Comment, Start d ate: 01/04/15 17:37:00, Duration: 30 day, Stop date: 02/03/15 17:36:00 Notes: Max icsxztubuzmre=2173 mg/day (4 gm/day). (Same as: Tylenol) Start Date: 01/04/15 Stop Date: 01/06/15 Status: Discontinued Tylenol 650 mg, 20.3 mL, Route: PO, Drug form: LIQ, Q4H, PRN Pain Score 1-3, Start date: 01/05/15 9:53:00, Duration: 30 day, Stop date: 02/04/15 9:52:00 Notes: ) Start Date: 01/05/15 Stop Date: 01/06/15 Status: Discontinued Unknown Home Medication I cool 1 tab, PO, Daily, Refill(s) 0 Start Date: 01/03/15 Stop Date: 01/05/15 Status: Discontinued Wellbutrin XL 150 mg, 1 tab, Route: PO, Drug form: ERTAB, Daily, Dosing Weight 83.21, kg, Star t date: 01/05/15 9:00:00, Duration: 30 day, Stop date: 02/03/15 9:00:00 Start Date: 01/05/15 Stop Date: 01/06/15 Status: Discontinued Zofran 4 mg, 2 mL, Route: IVP, Drug form: INJ, Q8H, PRN Nausea & Vomiting, Start date: 01/04/15 17:49:00, Duration: 30 day, Stop date: 02/03/15 17:48:00 Notes: (Same as: Zofran) MEDICATION WASTE Product Size: 4 mgProduct Was eliz: ___ mg Start Date: 01/04/15 Stop Date: 01/06/15 Status: Discontinued Results BLOOD BANK RESULTS 1 2 3 Most recent to oldest [Reference Range]: A POS *Unknown* (12/28/14 2:24 PM) ABO/Rh Negative (12/28/14 2:24 PM) Antibody Scrn ELECTROLYTES 1 2 3 Most recent to oldest [Reference Range]: 143 mEq/L (01/06/15 4:25 AM) 141 mEq/L (01/05/15 4:50 AM) 142 mEq/L (12/28/14 2:24 PM) Sodium Lvl [135-145 mEq/L] 3.4 mEq/L *LOW* (01/06/15 4:25 AM) 4.8 mEq/L (01/05/15 4:50 AM) 4.2 mEq/L (12/28/14 2:24 PM) Potassium Lvl [3.5-5.1 mEq/L] 109 mEq/L (01/06/15 4:25 AM) 106 mEq/L (01/05/15 4:50 AM) Chloride Lvl [95-109 mEq/L] 26 mEq/L (01/06/15 4:25 AM) 29 mEq/L (01/05/15 4:50 AM) CO2 [24-32 mEq/L] 11.4 mEq/L (01/06/15 4:25 AM) 10.8 mEq/L (01/05/15 4:50 AM) AGAP [10.0-20.0 mEq/L] CHEM PANEL 1 2 3 Most recent to oldest [Reference Range]: 0.9 mg/dL (01/06/15 4:25 AM) 1.1 mg/dL (01/05/15 4:50 AM) Creatinine Lvl [0.5-1.4 mg/dL] 69 mL/min/1.73m2 1 *NA* (01/06/15 4:25 AM) 54 mL/min/1.73m2 2 *NA* (01/05/15 4:50 AM) eGFR 6 mg/dL *LOW* (01/06/15 4:25 AM) 10 mg/dL (01/05/15 4:50 AM) BUN [7-22 mg/dL] 7 (01/06/15 4:25 AM) 9 (01/05/15 4:50 AM) B/C Ratio [6-25] 120 mg/dL *HI* (01/06/15 4:25 AM) 163 mg/dL *HI* (01/05/15 4:50 AM) 98 mg/dL (12/28/14 2:24 PM) Glucose Lvl [70-99 mg/dL] 5.1 g/dL *LOW* (01/06/15 4:25 AM) 5.6 g/dL *LOW* (01/05/15 4:50 AM) Total Protein [6.4-8.4 g/dL] 2.5 g/dL *LOW* (01/06/15 4:25 AM) 2.8 g/dL *LOW* (01/05/15 4:50 AM) Albumin Lvl [3.5-5.0 g/dL] 2.6 g/dL (01/06/15 4:25 AM) 2.8 g/dL (01/05/15 4:50 AM) Globulin [2.0-4.0 g/dL] 1.0 (01/06/15 4:25 AM) 1.0 (01/05/15 4:50 AM) A/G Ratio [0.7-1.6] 7.5 mg/dL *LOW* (01/06/15 4:25 AM) 7.7 mg/dL *LOW* (01/05/15 4:50 AM) Calcium Lvl [8.5-10.5 mg/dL] 14 unit/L (01/06/15 4:25 AM) 23 unit/L (01/05/15 4:50 AM) ALT [0-65 unit/L] 15 unit/L (01/06/15 4:25 AM) 30 unit/L (01/05/15 4:50 AM) AST [0-37 unit/L] 54 unit/L (01/06/15 4:25 AM) 63 unit/L (01/05/15 4:50 AM) Alk Phos [39-136 unit/L] 0.4 mg/dL (01/06/15 4:25 AM) 0.6 mg/dL (01/05/15 4:50 AM) Bili Total [0.2-1.3 mg/dL] 38 ng/mL (12/28/14 2:24 PM) Vitamin D, 25-OH, Total [30-100 ng/mL] 1Result Comment: The eGFR is calculated using [...] be mul tiplied by the estimated BMI. 2Result Comment: The eGFR is calculated using the [...] be mul tiplied by the estimated BMI. PARATHYROID PROFILE 1 2 3 Most recent to oldest [Reference Range]: 28.4 pg/mL (12/28/14 2:24 PM) PTH Intact [11.1-79.5 pg/mL] HEMATOLOGY 1 2 3 Most recent to oldest [Reference Range]: 4.9 K/CMM (01/06/15 4:25 AM) 6.1 K/CMM (01/05/15 4:50 AM) WBC [3.7-10.4 K/CMM] 3.21 M/CMM *LOW* (01/06/15 4:25 AM) 3.68 M/CMM *LOW* (01/05/15 4:50 AM) RBC [4.20-5.40 M/CMM] 10.4 g/dL *LOW* (01/06/15 4:25 AM) 12.0 g/dL (01/05/15 4:50 AM) 13.6 g/dL (12/28/14 2:24 PM) Hgb [12.0-16.0 g/dL] 31.6 % *LOW* (01/06/15 4:25 AM) 35.6 % *LOW* (01/05/15 4:50 AM) 41.8 % (12/28/14 2:24 PM) Hct [36.0-48.0 %] 98.5 fL *HI* (01/06/15 4:25 AM) 96.7 fL (01/05/15 4:50 AM) MCV [80.0-98.0 fL] 32.3 pg *HI* (01/06/15 4:25 AM) 32.6 pg *HI* (01/05/15 4:50 AM) MCH [27.0-31.0 pg] 32.8 g/dL (01/06/15 4:25 AM) 33.7 g/dL (01/05/15 4:50 AM) MCHC [32.0-36.0 g/dL] 14.0 % (01/06/15 4:25 AM) 13.4 % (01/05/15 4:50 AM) RDW [11.5-14.5 %] 115 K/CMM *LOW* (01/06/15 4:25 AM) 160 K/CMM (01/05/15 4:50 AM) Platelet [133-450 K/CMM] 9.3 fL (01/06/15 4:25 AM) 8.2 fL (01/05/15 4:50 AM) MPV [7.4-10.4 fL] 73.7 % (01/06/15 4:25 AM) 81.3 % *HI* (01/05/15 4:50 AM) Segs [45.0-75.0 %] 16.0 % *LOW* (01/06/15 4:25 AM) 11.6 % *LOW* (01/05/15 4:50 AM) Lymphocytes [20.0-40.0 %] 7.9 % (01/06/15 4:25 AM) 6.8 % (01/05/15 4:50 AM) Monocytes [2.0-12.0 %] 2.1 % (01/06/15 4:25 AM) 0.0 % (01/05/15 4:50 AM) Eosinophils [0.0-4.0 %] 0.3 % (01/06/15 4:25 AM) 0.3 % (01/05/15 4:50 AM) Basophils [0.0-1.0 %] 3.6 K/CMM (01/06/15 4:25 AM) 5.0 K/CMM (01/05/15 4:50 AM) Segs-Bands # [1.5-8.1 K/CMM] 0.8 K/CMM *LOW* (01/06/15 4:25 AM) 0.7 K/CMM *LOW* (01/05/15 4:50 AM) Lymphocytes # [1.0-5.5 K/CMM] 0.4 K/CMM (01/06/15 4:25 AM) 0.4 K/CMM (01/05/15 4:50 AM) Monocytes # [0.0-0.8 K/CMM] 0.1 K/CMM (01/06/15 4:25 AM) 0.0 K/CMM (01/05/15 4:50 AM) Eosinophils # [0.0-0.5 K/CMM] 0.0 K/CMM (01/06/15 4:25 AM) Basophils # [0.0-0.2 K/CMM] 1+ *ABN* (01/06/15 4:25 AM) 1+ *ABN* (01/05/15 4:50 AM) Macrocyte [None Seen] Immunizations Vaccine Date Refusal Reason Hx pneumococcal vaccine 01/20/14 Procedures Procedure Date Related Diagnosis Body Site Gastric bypass operation 01/04/15 Removal of gastric band 01/04/15 Cholecystectomy Hysterectomy Laparoscopic adjustable gastric banding Miscellaneous operations1 1interstim implant Social History Social History Type Response Alcohol Current, Type Wine. Smoking Status Never smoker; Exposure to Tobacco Smoke None; Cigarette Smoking Last 365 Days No; Reg Smoking Cessation Counseling No Assessment and Plan Extracted from: Title: Surgery Note Author: Adriano Acosta Date: 01/06/15 (Fellow) Progress Daily [facility] Completed: Dec, 06:30 by Adriano Acosta (Fellow) RM: [phone], KEVIN ROBERTS (: 1955) F Attending: Chao Durandhone: Service: General Surgery Service Reason for Admission: [id number] Working DRG: O.R. procedures for obesity w/o CC/LONG-TERM Code status: None Specified=FULL CODECurrent diet: Isolation: None Documented Allergies: Entex SUBJECTIVE Pt doing well this AM. +amb, +urination. Pain controlled. No N/V/F/S/C. Tolerating clears. OBJECTIVE Gen: AAOx3, NAD CV: RRR Lungs: Symmetric expansion, non-labored Abd: Soft, ND, ATTP. No guarding or rebound. Inc sites C/D/I. [place] drain site with dry dressing in place. ISMAEL drain in place with serosanguineous output. Ext: No C/C/E ASSESSMENT & EXAM 59 y/o female s/p revision of gastric band to LRYGB (POD #2) - Pain - Obesity PLAN & TREATMENT - Pain well controlled. Will D/C BANJO REPAIRER and transition to PO pain meds. - Pertinent home meds restarted. ADAT to fulls. - Dispo. Plan to D/C pt home today.
[2018-02-19 14:30] VITALS: BP 111/63
--- NOTE | 2018-02-24 01:48 | Operative Report ---
DATE OF PROCEDURE: February 19, 2018 PREOPERATIVE DIAGNOSIS: Refractory urge incontinence with existing InterStim implant requiring revision. POSTOPERATIVE DIAGNOSIS: Refractory urge incontinence with existing InterStim implant requiring revision. OPERATIONS PERFORMED: 1. Incision and implantation of tined quadripolar lead electrodes into the right foramen S3. 2. Removal of existing InterStim lead electrodes. 3. Explantation of old InterStim generator from the right side. 4. Implantation of sacral nerve neurostimulator on the left side. 5. Fluoroscopic guidance for needle placement. 6. Electronic analysis and complex programming. ANESTHESIA: General. COMPLICATIONS: None. CLINICAL SUMMARY: Nyla March is a 62-year-old woman who had an InterStim implanted 4 years earlier for refractory urge incontinence. She had an excellent result. The patient, however, lost over 60 pounds and her anatomy changed dramatically. Her lead is palpable just subcutaneously and her InterStim implant is mobile as well as irritating. She is brought for revision of her implant. She is aware of the risks of bleeding, infection, injury to adjacent structures, need for additional procedures, and elected to proceed. OPERATIVE PROCEDURE IN DETAIL: Informed consent was verified. Nyla March was properly identified, taken to the operating room where anesthesia was uneventfully begun. She was carefully and gently repositioned in the dorsal lithotomy position with all pressure points well padded. Pillows were placed under her lower abdomen to flatten the sacrum and under the shins to allow the toes to dangle freely. The incision was then made overlying the old neurostimulator. We explanted the old neurostimulator, disconnected the lead, and examined that the insulation of the lead has for approximately 3 mm thus exposing the lead itself. This could explain some of the pocket discomfort the patient was feeling. An incision was then made overlying the existing lead. We identified and isolated the lead. We then tested the 4 leads, they seemed to be working, however, I have serious concerns about the exposed lead with a compromised insulation. Fluoroscopically, it seems as if the existing leads maybe in S4 and not in S3 even thought it was functional. Needle was then introduced into the right foramen S3 and depth of the needle was confirmed and adjusted fluoroscopically. We tested the positioning with direct observation of the lifting of the perineum or "bellowing" and observation of plantarflexion of the great toe utilizing the external stimulator box. The needle stylette was then removed, directional guidewire was then placed and confirmed fluoroscopically. The foramen needle was then removed. The dilator and introducer sheath were then placed over the directional guide until the opaque marker of the dilator was seen at the midpoint of the sacrum. The dilator obturator was then unlocked and removed and a new lead was then placed through the introducer sheath to the first white line. Position was checked fluoroscopically. We tested all 4 leads with all 4 electrodes with the response as noted above, and then we retracted the introducer sheath thus deploying the lead tines into the perisacral tissue. This was done with fluoroscopic guidance. We then further dissected the existing lead down to the foramen. We were then able to pull out the lead with gentle traction. This was uneventful. Further incision was then made into the subcutaneous tissues posterior to the left iliac crest, and blunt dissection was continued until we fashioned an appropriate pocket. Hemostasis was achieved with electrocautery. We infiltrated with local anesthesia all 3 incision sites circumferentially as well as deep to the pocket sites. Tunneling tool and tube were then placed from the lead incision to the new pocket on the left hand side and the lead was brought through there and the lead was then cleansed thoroughly of bodily fluids using sterile water and the lead was then inserted into the pulse generator with the metal bands aligned and the blue tip clearly visible in the distal portion of pulse generator header. The single set screw was tightened with a hex wrench. Copious irrigation was performed of all incisions. The generator was placed into its pocket. The programming head was then placed over the implanted neurostimulator. Impedance parameters were all within acceptable limits. All incisions were then approximated in 2 layers utilizing absorbable sutures. Mastisol and Steri-Strips were applied. Bio-occlusive dressings were applied. The patient was then uneventfully reversed from anesthesia and taken to the recovery room in stable condition. There were no complications to the procedure. Patient tolerated the procedure well. Sponge, needle, and instrument counts were quoted as correct x2 at the end of the case. Estimated blood loss was minimal. Explicit postoperative instructions were given. Utilizing the clinician senior clinical sas programmer, the patient was programmed to the lead of optimum sensation and given explicit instructions on utilization of the senior clinical sas programmer prior to discharge. Plans will be to follow the patient up in the office. Job#: [id number]
== END | disposition home or self-care (01) ==
LOC: OR 08:58
PROVIDERS: ATTEND Urology
DX: T85.890A Other specified complication of nervous system prosthetic devices, implants and grafts, initial encounter (principal); N39.41 Urge incontinence; J45.909 Unspecified asthma, uncomplicated; K21.9 Gastro-esophageal reflux disease without esophagitis; Y83.8 Other surgical procedures as the cause of abnormal reaction of the patient, or of later complication, without mention of misadventure at the time of the procedure; Z88.8 Allergy status to other drugs, medicaments and biological substances; Z01.810 Encounter for preprocedural cardiovascular examination; Z79.82 Long term (current) use of aspirin
CPT/HCPCS: 64581; 64590; 76000; 88300; 93005; 95972; C1778; C1787; C1894; J2001 ×2; J2250; J2543; J2704; L8679; L8696